=== PATIENT | male | born 1995 | race African-American/Black ===

== ENCOUNTER 2021-07-08 18:44 | Emergency (ER) | payer SELFPAY ==
[~2021-07-08] VITALS: Ht 180.3 cm; Wt 86.2 kg
== END 2021-07-08 21:08 | disposition home or self-care (01) ==
LOC: ED 18:44
DX: S91.132A Puncture wound without foreign body of left great toe without damage to nail, initial encounter (principal); W22.8XXA Striking against or struck by other objects, initial encounter; Y93.89 Activity, other specified; Y92.89 Other specified places as the place of occurrence of the external cause; Y99.8 Other external cause status

== ENCOUNTER 2021-10-12 17:01 | Emergency (ER) | payer OTHER | END 2021-10-12 17:39 | disposition left against medical advice (07) | LOC: ED 17:01 | DX: M54.2 Cervicalgia (principal); Z53.21 Procedure and treatment not carried out due to patient leaving prior to being seen by health care provider ==